=== PATIENT | male | born 1940 | race Caucasian/White ===

== ENCOUNTER 2021-03-03 20:27 | Observation (INO) | payer OTHER, MEDICARE ==
[~2021-03-03] VITALS: Ht 167.6 cm; Wt 95.2 kg
[2021-03-03 20:58] LABS: BASOPHILS ABSOLUTE AUTO 0.08 K/mm3 (0.00-0.23); BASOPHILS PERCENT AUTO 1 % (0-2); EOSINOPHILS PERCENT AUTO 4 % (0-6); Hemoglobin 12.9 g/dL (13.5-17.5); IMMATURE GRAN ABSOLUTE AUTO 0.03 K/mm3 (0.00-0.10); IMMATURE GRAN PERCENT AUTO 0 % (0-1); LYMPHOCYTES ABSOLUTE AUTO 3.23 K/mm3 (0.84-5.20); LYMPHOCYTES PERCENT AUTO 29 % (21-46); MONOCYTES PERCENT AUTO 6 % (4-13); Mean Corpuscular HGB 28.4 pg (26.0-34.0); Mean Corpuscular HGB Conc 33.1 g/dL (31.5-36.5); Mean Corpuscular Volume 86 fL (80-100); NEUTROPHILS ABSOLUTE AUTO 6.54 K/mm3 (1.96-9.15); NEUTROPHILS PERCENT AUTO 60 % (41-73); Platelet Count 233 K/mm3 (150-400); RDW Coefficient Variation 13.3 % (11.7-14.2); Red Blood Cell Count 4.54 M/mm3 (4.30-5.90); White Blood Cell Count 10.98 K/mm3 (4.00-11.30)
[2021-03-03 21:23] LABS: Ethanol (Alcohol), Blood, Med <3 mg/dL
[2021-03-03 21:24] LABS: Alanine Aminotransfer (ALT/SGP 19 U/L (12-78); Albumin, Blood 3.8 g/dL (3.4-5.0); Alk Phos 60 U/L (50-136); Anion Gap 7 mmol/L (6-16); Aspartate Aminotrans (AST/SGOT 13 U/L (12-37); Bilirubin, Total 0.3 mg/dL (0.1-1.0); Blood Urea Nitrogen 28 mg/dL (8-24); Bun/Creatinine Ratio 23.9 (12.0-20.0); CO2, Blood 24 mmol/L (21-32); Calcium, Blood 9.1 mg/dL (8.5-10.1); Chloride, Blood 108 mmol/L (98-108); Creatinine, Blood 1.17 mg/dL (0.60-1.20); Globulin, Blood 3.8 g/dL (2.2-4.0); Glomerular Filtration Rate 60 (60-); Glucose, Blood 97 mg/dL (70-99); Salicylate <1.7 mg/dL (2.8-20.0); Sodium, Blood 139 mmol/L (136-145); Total Protein, Blood 7.6 g/dL (6.4-8.2); Troponin I <0.015 ng/mL (0.000-0.040)
[2021-03-03 21:31] LABS: Acetaminophen, Random <2.0 ug/mL (10.0-30.0)
[2021-03-04 11:12] LABS: Source, Urine Clean Catch
[2021-03-04 11:18] LABS: Appearance, Urine Clear (Clear); Bilirubin, Urine Neg (Neg); Blood, Urine Neg (Neg); Color, Urine Yellow (P-Yellow); Glucose Qualitative, Urine 3+ (Neg); Ketones, Urine Neg (Neg); Leukocyte Esterase, Urine Neg (Neg); Nitrite, Urine Neg (Neg); Protein, Urine 1+ (Neg); Specific Gravity, Urine 1.015 (1.003-1.022); Urobilinogen, Urine NORM (Normal)
[2021-03-04 11:29] LABS: U Amphetamine Screen Not Detected; U Barbituate Screen Not Detected; U Benzodiazapine Screen Not Detected; U Buprenorphine Screen Not Detected; U Cannabinoids Screen Not Detected; U Cocaine Screen Not Detected; U Methadone Screen Not Detected; U Methamphetamine Screen Not Detected; U Opiates Screen Not Detected; U Oxycodone Screen Not Detected; U Phencyclidine Screen Not Detected; U Propoxyphene Screen Not Detected
[2021-03-04] MEDS ORDERED: ACET500 PO (13:37)
[2021-03-04] MEDS ORDERED: ATHLETE'S FOO35.4 GM TOP (13:38)
[2021-03-04] MEDS ORDERED: GLUCOSE4 GM PO (13:39)
[2021-03-04] MEDS ORDERED: NOVOLIN 70100 UNIT/4 SC (13:40)
[2021-03-04] MEDS ORDERED: QUET25 PO ×2 (13:41)
[2021-03-04] MEDS ORDERED: GLUCOPHAGE1000 M1 PO (13:41)
[2021-03-04] MEDS ORDERED: SEROQUEL25 MG PO (13:42)
--- NOTE | 2021-03-04 17:47 | NUR ---
PT ADMITTED FROM ER. DEMENTIA AND PSYCHOSIS. PT WAS PLACED IN RESTRAINTS UPON ARRIVAL HE INSTANTLY POSED A THREAT TO SELF, CONSTANTLY GETTING OUT OF CHAIR, TRYING TO WALK OUT OF OR EVEN JUST AROUND HIS ROOM. PT IS VERY UNSTEADY AND NOT AWARE OF HIS LIMITATIONS. PT SPEACH VERY GARBLED AND OFTEN NON SENSICAL IN NATURE . HE IS ALERT TO SELF, NOT AWARE OF THE YEAR, LOCATION OR SITUATION. PT IS CONSTANTLY MOVING OR FIGITING, UNLOCKING THE WHEELS TO HIS RECLINER, SCOOTING AROUND THE ROOM, TAKING THE TAB ALARM OUT FROM UNDER HIM AND DESTROYING IT. PT HAS PULLED CALL LIGHT FROM WALL, ATTEMPTED TO TIP OVER VISITOR CHAIR, AND STRIPPED DOWN TO HIS BIRTHDAY SUIT. PT IS NOT AGGRESSIVE WITH STAFF AT THIS TIME. THIS NURSE GOT UPDATE FROM HIS DAUGHTER WITH WHOM HE HAS BEEN AGGRESSIVE WITH, SLAPPING HER AND HER 8 YEAR OLD GRANDSON IN THE FACE. PT HAS LIVED ON HIS OWN WITH DAUGHTER AND SON IN LAW NEXT DOOR WHO ARE NO LONGER ABLE TO TAKE CARE OF HIM.
--- NOTE | 2021-03-05 05:38 | NUR ---
SHIFT SUMMARY PATIENT AGITATED AND CONFUSED MOST OF THE NIGHT. REQUIRED TO BE MEDICATED WITH IM ZYPREXA PER EMAR. PATIENT NOW SLEEPING. PATIENT HAD NO COMPLAINTS OF PAIN OR SHORTNESS OF BREATH. BED IN LOWEST POSITION WITH WHEELS LOCKED AND ALARM ON. CALL LIGHT WITHIN REACH. REPORT GIVEN TO ONCOMING RN.
[2021-03-05 06:01] LABS: BASOPHILS ABSOLUTE AUTO 0.07 K/mm3 (0.00-0.23); BASOPHILS PERCENT AUTO 1 % (0-2); EOSINOPHILS ABSOLUTE AUTO 0.45 K/mm3 (0.00-0.68); EOSINOPHILS PERCENT AUTO 5 % (0-6); Hematocrit 40.8 % (37.0-53.0); Hemoglobin 13.6 g/dL (13.5-17.5); IMMATURE GRAN ABSOLUTE AUTO 0.02 K/mm3 (0.00-0.10); IMMATURE GRAN PERCENT AUTO 0 % (0-1); LYMPHOCYTES ABSOLUTE AUTO 3.05 K/mm3 (0.84-5.20); LYMPHOCYTES PERCENT AUTO 31 % (21-46); MONOCYTES PERCENT AUTO 9 % (4-13); Mean Corpuscular HGB Conc 33.3 g/dL (31.5-36.5); Mean Corpuscular Volume 84 fL (80-100); Mean Platelet Volume 10.8 fL (9.1-12.4); NEUTROPHILS ABSOLUTE AUTO 5.42 K/mm3 (1.96-9.15); NEUTROPHILS PERCENT AUTO 55 % (41-73); Platelet Count 262 K/mm3 (150-400); RDW Coefficient Variation 13.2 % (11.7-14.2); RDW Standard Deviation 40.7 fL (35.1-46.3); Red Blood Cell Count 4.85 M/mm3 (4.30-5.90); White Blood Cell Count 9.91 K/mm3 (4.00-11.30)
--- NOTE | 2021-03-05 17:40 | NUR ---
SHIFT SUMMARY PT AXO X1, PLEASANT AND COOPERATIVE WITH CARE. CONVERSATIONAL AND SPEAKS IN FULL SENTENCES THOUGH FLIGHT OF IDEAS THAT ARE NOT CONTEXTUALLY APPROPRIATE. IN LOBO THIS SHIFT R/T BEING IMPULSIVE AND HIGH RISK FOR FALLS. VSS. CBG ACHS, MEDICATED PER EMAR. UP WITH 2 ASSIST WITH FWW AND GB. PT DENIES PAIN, SOB AND NV. UP TO CHAIR FOR MOST OF THE DAY. BED IN LOW POSITION, CALL LIGHT WITHIN REACH AND BED ALARM ON.
--- NOTE | 2021-03-06 04:08 | NUR ---
SUMMARY PT CONTINUES TO TRY AND GET OUT OF BED. PT REMAINS CONFUSED AND IMPULSIVE. PT WAS AWAKE FOR MOST OF SHIFT. PT CURRENTLY SLEEPING AND IN NO DISTRESS. CALL LIGHT IN REACH, BED ALARM ON AND ON CAMERA.
--- NOTE | 2021-03-06 18:31 | NUR ---
PT RESTING IN BED AFTER DINNER AND PM MEDICATION ADMIN. PT REMIANS ALERT BUT CONFUSED AND IN LOBO VEST FOR RISK OF FALLS, AND HARM TO OTHERS FROM AGGITATION. PT AMBULATES FROM BED TO RESTROOM WITH WALKER AND 1 ASSIST. PT COOPERATIVE AND REDIRECTABLE. BED IN LOW POSITION AND STAFF WILL CONTINUE TO MONITOR.
--- NOTE | 2021-03-07 03:54 | NUR ---
PATIENT HAS BEEN COOPERATIVE WITH STAFF THIS SHIFT. AFTER BEDTIME MEDS THE PATIENT WENT TO SLEEP AND HAS BEEN SLEEPING COMFORTABLY T/O THE NIGHT. SCD's PLACED TO BLE. ORIENTED TO SELF. VITALS HAVE BEEN STABLE. PATIENT CONTINUES IN LOBO VEST FOR INCREASED PATIENT SAFETY. PATIENT CONTINUES TO SLEEP IN BED AT THIS TIME. CALL LIGHT WITHIN REACH.
--- NOTE | 2021-03-07 18:28 | NUR ---
PT IN BED, ALERT AND ORIENTED TO SELF. PT CONT. WITH LOBO VEST AND 4 SIDE RAILS FOR SAFETY HE IS A HIGH FALL RISK, CONFUSED, COMBATIVE AT TIMES AND SWINGS HIS ARMS WHEN UPSET. PT HAS BEEN MEDICATION COMPLAINT, ATE ALL OF HIS MEALS AND CALLS OUT WHEN HE NEEDS TO USE THE BESTROOM. 1-2 PERSON ASSIST WITH BRP. PT AGGITATION TREEATED PER EMAR. BED IN LOW POSION AND STAF WILL CONTINUE TO MONITOR.
--- NOTE | 2021-03-08 03:59 | NUR ---
SHIFT SUMMARY A/O TO SELF ONLY. VISUAL AND AUDITORY HALLUCINATIONS NOTED. DENIES PAIN OR SOB. COOPERATIVE WITH CARE T/O SHIFT. ATTEMPTING TO GET OOB, LOBO AND [address] FOR SAFETY. VSS, NO ACUTE CHANGES AT THIS TIME. BED IN LOWEST POSITION WITH CALL LIGHT IN REACH. WILL CONTINUE TO MONITOR AND REPORT TO ONCOMING RN.
[2021-03-08 05:26] LABS: BASOPHILS ABSOLUTE AUTO 0.05 K/mm3 (0.00-0.23); BASOPHILS PERCENT AUTO 0 % (0-2); EOSINOPHILS ABSOLUTE AUTO 0.56 K/mm3 (0.00-0.68); EOSINOPHILS PERCENT AUTO 5 % (0-6); Hematocrit 45.5 % (37.0-53.0); IMMATURE GRAN ABSOLUTE AUTO 0.03 K/mm3 (0.00-0.10); IMMATURE GRAN PERCENT AUTO 0 % (0-1); LYMPHOCYTES ABSOLUTE AUTO 4.15 K/mm3 (0.84-5.20); LYMPHOCYTES PERCENT AUTO 37 % (21-46); MONOCYTES PERCENT AUTO 7 % (4-13); Mean Corpuscular HGB 28.1 pg (26.0-34.0); Mean Corpuscular Volume 85 fL (80-100); Mean Platelet Volume 10.7 fL (9.1-12.4); NEUTROPHILS ABSOLUTE AUTO 5.77 K/mm3 (1.96-9.15); NEUTROPHILS PERCENT AUTO 51 % (41-73); Platelet Count 309 K/mm3 (150-400); RDW Coefficient Variation 13.1 % (11.7-14.2); Red Blood Cell Count 5.33 M/mm3 (4.30-5.90); White Blood Cell Count 11.36 K/mm3 (4.00-11.30)
[2021-03-08 05:49] LABS: Albumin, Blood 4.1 g/dL (3.4-5.0); Albumin/Globulin Ratio 0.9 (0.8-1.8); Bilirubin, Total 0.6 mg/dL (0.1-1.0); Bun/Creatinine Ratio 18.9 (12.0-20.0); Calcium, Blood 9.7 mg/dL (8.5-10.1); Creatinine, Blood 1.22 mg/dL (0.60-1.20); Globulin, Blood 4.5 g/dL (2.2-4.0); Potassium, Blood 3.9 mmol/L (3.5-5.5); Total Protein, Blood 8.6 g/dL (6.4-8.2)
--- NOTE | 2021-03-08 17:42 | NUR ---
SUMMARY- PT ALERT TO SELF AND FAMILY. SITTING UP IN THE CHAIR MOST OF THE DAY. WORKED WITH PT AND OT. 2PERSON ASSIST FFW/GB WALKER TO CHAIR. GOOD STRENGTH, POOR COORDINATION. CONT LOBO VEST FOR PT SAFETY HE DOESN'T KNOW LIMITS AND IMPULSIVE. PT FEEDS SELF. TOLERATING FOOD AND FLUIDS. INCONT ATTENDS CHANGE. BLOOD SUGARS HIGH AROUND 280'S, COVERED WITH LOW LLI. PT ON SEREQUIL, CONT DELUSIONAL BUT CALM, TALKS TO HIMSELF AND THE STAFF, DIRECTABLE.
--- NOTE | 2021-03-09 03:31 | NUR ---
SHIFT SUMMARY A/O TO SELF ONLY. UNABLE TO FOLLOW DIRECTIONS. DIFFICULTY TRANSFERING FROM CHAIR TO BED DESPITE 2 MAX ASSIST FWW AND GB. LOBO AND [address] FOR SAFETY. VSS, NO ACUTE CHANGES AT THIS TIME. BED IN LOWEST POSITION WITH CALL LIGHT IN REACH. WILL CONTINUE TO MONITOR AND REPORT TO ONCOMING RN.
--- NOTE | 2021-03-09 17:01 | NUR ---
SUMMARY- PT UP IN CHAIR MOST OF THE DAY. WALKED ALL THE WAY DOWN THE SHEPARD WITH PHYSICAL THERAPY AND WALKLER. SAT UP IN CHAIR MOST OF THE DAY. TOLERATING FOOD AND FLUIDS. CONT.INCONT ATTENDS. BLOOD SUGARS IN HIGH 200'S, DR PERRY HAS MADE ADJUSTMENTS AND IS MONITORING. AWAITING PLACEMENT.
--- NOTE | 2021-03-09 17:41 | NUR ---
1425- PT SLIPPEP OUT OF END OF CHAIR ONTO FLOOR WITH LOBO IN PLACE. VIDIO MONITOR CALLED RN AND FOUND PT SITTING ON FLOOR LEANING AGAINST CHAIR, CHAIR ALARM HAD NOT GONE OFF AND LOBO WAS HIGH CHEST LEVEL, UNIED LOBO AND 3 PERSON LIFT BACK TO CHAIR. PT SUSTAINED NO INJURY. NOTIFIED MD AND RESISTOR TESTER. NO IRIS FOR WITNESSED SLIP OUT OF CHAIR.
--- NOTE | 2021-03-10 04:42 | NUR ---
SHIFT SUMMARY A/O TO SELF ONLY. MUMBLES INCOHERENTLY. IM ZYPREXA GIVEN ONCE THIS SHIFT FOR AGITATION. LOBO RESTRAINT AND [address] FOR SAFETY. VSS, NO ACUTE CHANGES AT THIS TIME. BED IN LOWEST POSITION WITH CALL LIGHT IN REACH. WILL CONTINUE TO MONITOR AND REPORT TO ONCOMING RN.
--- NOTE | 2021-03-10 18:41 | NUR ---
SHIFT SUMMARY PT HAS BEEN INCREASINGLY BUSY AND RESTLESS IN HIS CHAIR AND ATTEMPTING TO CLIMB OOB WHEN IN BED. ZYPREXA GIVEN WITHNO EFFECT. HAVE HAD HIM IN THE HALLWAY FOR CLOSER MONITERING DUE TO CONSTAND EFFORTS TO STAND UP FROM CHAIR. LOBO VEST IN PLACE AND CHAIR ALARM ON. HAVE WALKED WITH PT IN HALLWAY WITH GAIT BELT AND FWW. HAS BEEN TO BATHROOM. SNACKS OFFERED. BECOMES FIXATED ON SPECIFIC SUBJECTS AND DIFFICULT TO REDIRECT. HAS NOT BEEN AGGRESSIVE OR ANGRY BUT VERY PERSISTANT. VERY CROW.
--- NOTE | 2021-03-11 05:23 | NUR ---
SHIFT SUMMARY A/O TO SELF ONLY. NONSENSICAL SPEECH, DIFFICULTY FOLLOWING COMMANDS. 2 MAX ASSIST WITH FWW AND GB. OLBO RESTRAINT AND [address] FOR SAFETY. VSS, NO ACUTE CHANGES AT THIS TIME. BED IN LOWEST POSITION WITH CALL LIGHT IN REACH. WILL CONTINUE TO MONITOR AND REPORT TO ONCOMING RN.
--- NOTE | 2021-03-11 18:16 | NUR ---
SHIFT SUMMARY PATIENT REMAINED STABLE THROUGHOUT THE DAY. HE IS PLEASANT AND COOPERATIVE, BUT SOMETIMES HARD TO REDIRECT. HE CONTINUES TO PLAY WITH HIS BRIEF AND RESTRAINTS AND WILL SLIDE DOWN IN THE CHAIR WHEN HIS BRIEF IS WET. HE IS ABLE TO WALK TO THE BATHRROM AND THROUGH THE HALLS WITH 1 P ASSIST, FWW, AND GAIT BELT. SITTING UP IN THE CHAIR IN THE HALLWAY IS THE BEST FOR OBSERVATION AND DIVERTING HIS ATTENTION FROM UNTYING HIS RESTRAINTS, ALTHOUGH HIS IS BEING MONITORED ON CAMERA.
--- NOTE | 2021-03-12 03:29 | NUR ---
SHIFT SUMMARY PT AWAKE MOST OF THE NIGHTS AGITATED AND ATTEMPTING TO GET OOB. PT SWINGS LEGS OVER THE SIDE OF THE BED SEVERAL TIMES T/O THE SHIFT. REMOVES HIS ATTENDS AND URINATES ALL OVER HIS LINENS, SEVERAL LINEN CHANGES DONE THIS SHIFT. PT IS A/O TO SELF ONLY, SPEECH NONSENSICAL. PT IS VERY DIFFICULT TO DIRECT. DIVERSIONAL ACTIVITES SUCH TV AND SNACKS PROVIDED TO HELP EASE ANXIETY AND AGIATION WITHOUT MUCH AFFECT. PT MEDICATED FOR AGITATION PER EMAR. LOBO RESTRIANT STILL NEEDED AT THIS TIME PT REMAINS A HIGH FALL RISK. VITALS STABLE. NO ACUTE CHANGES IN ASSESSMENT. BED IN LOWEST POSITION, CALL LIGHT WITHIN REACH.
--- NOTE | 2021-03-12 17:47 | NUR ---
SHIFT SUMMARY- PT IS ALERT, PLESANT AND COOPERATIVE. HE IS EATING AND DRINKING WELL. HE IS CONFUSED. HE IS IN A LOBO DUE TO IMPULSIVITITY AND WANTING TO GET OUT OF BED. HE IS AWAITING PLACMENT. HIS BED IS IN THE LOW POSITION AND CALL LIGHT IS WITHIN REACH.
--- NOTE | 2021-03-12 19:19 | NUR ---
RECEIVED REPORT FROM GIULIA RN. PT IN BED. LOBO IN PLACE, SIDES RAILS X 4 UP. BED ALARM ON. CALL LT IN REACH. RESP E/U ON RA. WILL PROVIDE CARE T/O SHIFT.
--- NOTE | 2021-03-12 21:41 | NUR ---
PT RESTING COMFORTABLY AT THIS TIME. BED ALARM ON. CALL LT IN REACH.
--- NOTE | 2021-03-12 22:58 | NUR ---
REPOSITIONED PT FOR COMFORT. PT CONTINUES TO TALK OUT LOUD, INCOHERENTLY. BED ALARM ON. CALL LT IN REACH.
--- NOTE | 2021-03-13 04:47 | NUR ---
SHIFT SUMMARY: CONTINUES TO BE CONFUSED WITH PERIODS OF AGITATION, THROWING LEGS OVER SIDE RAILS. MUMBLES INCOHERENTLY. LOBO AND SIDE RAILS X 4 UP FOR PT SAFETY. NO COMPLAINTS OF PAIN. ON RA. TAKES PILLS WHOLE IN APPLESAUCE. NO ACUTE CHANGES. WILL PROVIDE CARE UNTIL SHIFT REPORT. CALL LT IN REACH. BED ALARM ON.
--- NOTE | 2021-03-13 18:55 | NUR ---
PT SLEPT T/O THE MORNING, WOKE FOR LUNCH AND HAS BEEN AWAKE THIS AFTERNOON, WILL ASK FOR URINAL AT TIMES, WILL THROW HIS LEGS OVER THE EDGE OF BED AND ATTEMPT TO GET OOB. LOBO VEST REMAINS IN PLACE, BED ALARM ARMED AND CALL GANNON IN REACH.
--- NOTE | 2021-03-13 19:16 | NUR ---
RECEIVED REPORT FROM LAUREANO BAILON. PT LYING IN BED TALKING TO HIS , IS NOT PRESENT. RESP E/U ON RA. LOBO AND SIDE RAILS X [address] BED ALARM ON. CALL LT IN REACH. WILL PROVIDE CARE T/O SHIFT.
--- NOTE | 2021-03-14 04:11 | NUR ---
SHIFT SUMMARY: NO ACUTE CHANGES. CONTINUES TO HAVE PERIODS OF CONFUSION WITH VISUAL HALLUCINATIONS. NO COMPLAINTS OF PAIN OR SOB. LOBO AND SIDE RAILS X 4 FOR SAFETY. CAMERA MONITORING. ON RA. TAKES MEDS WHOLE IN APPLESAUCE. AWAITING PLACEMENT. WILL CONTINUE TO PROVIDE CARE UNTIL SHIFT REPORT.
--- NOTE | 2021-03-14 18:08 | NUR ---
PT HAS BEEN AWAKE AND ACTIVE THIS SHIFT, CONTIUALLY MOVING, WAS UP TO THE CHAIR FOR APPROX 5 HOURS THIS MORNING, HE BECAME INCREASINGLY AGITATED T/O THE AFTERNOON AND AT 1618 10MG IM ZYPREXA GIVEN TO PT WITH GOOD EFFECT. NO ACUTE CHANGES NOTED THIS SHIFT, WILL CONTINUE TO MONITOR AND REPORT TO ONCOMING RN
--- NOTE | 2021-03-14 19:24 | NUR ---
RECEIVED REPORT FROM LAUREANO BAILON. PT LYING IN BED RESTLESS, MUMBLING INCOHERENTLY. ON RA. VEST RESTRAINT. BED ALARM ON. WILL PROVIDE CARE T/O SHIFT. CALL LT IN REACH.
--- NOTE | 2021-03-14 23:58 | NUR ---
PT BECOMING MORE RESTLESS AND AGITATED, THROWING LEGS OVER SIDE RAILS. 10MG ZYPREXA IM GIVEN. WILL CONTINUE TO PROVIDE CARE. BED ALARM ON. CALL LT IN REACH.
--- NOTE | 2021-03-15 04:21 | NUR ---
SHIFT SUMMARY: NO ACUTE CHANGES. RESTLESS AND AGITATED MOST OF THE SHIFT. LOBO AND SIDE RAILS X [address] FOR PT SAFETY. PT WOULD THROW LEGS OVER SIDE RAIL OFF AND ON. NO COMPLAINTS OF PAIN. ON RA. USED URINAL ONCE. ATTENDS IN PLACE. AWAITING PLACEMENT. WILL CONTINUE TO PROVIDE CARE UNTIL SHIFT REPORT.
--- NOTE | 2021-03-15 06:32 | NUR ---
PT RESTING AT THIS TIME AFTER A RESTLESS NIGHT. BED ALARM ON.
--- NOTE | 2021-03-15 16:35 | NUR ---
SHIFT SUMMARY: ASLEEP MOST OF SHIFT. AWAKE ALL HS. REMAINS IMPULSIVE WITH POOR SAFETY AWARENESS AND JUDGEMENT WHEN AWAKE. IN LOBO, WITH SIDE RAILS UP AND ON CAMERA.
--- NOTE | 2021-03-15 23:20 | NUR ---
PT MD ON FLOOR, UPDATE GIVEN. PT REMAINS IN LOBO VEST HE IS UNSTEADY ON FEET AND TRIES TO GET OUT OF BED. CALL LIGHT IN REACH.
--- NOTE | 2021-03-16 03:02 | NUR ---
GAS PUMPING STATION SUPERVISOR SUMMARY HAS BEEN AWAKE AT INTERVALS, WITH ATTEMPTS TO GET OUT OF BED. ASSISTED TO BEDSIDE COMMODE FOR BM EARLIER. OTHER ATTEMPTS INCLUDED SOME APPARENT INCOHERENT VERBALIZATIONS, AND/OR JUST APPARENT MUMBLING. CALL LIGHT IN REACH. LOBO VEST RESTRAINT CONTINUES HE REMAINS A HIGH RISK FOR FALLING HE IS UNSTEADY ON HIS FEET AND DIFFICULT TO REDIRECT. RAILS UP X 4 WELL. CURRENTLY OF THIS WRITING, [place] [facility].
--- NOTE | 2021-03-16 12:52 | NUR ---
Patient was compliant and sitting in his chair without trying or fighting to get up. therfore, His [place] vest was discontinued and monitor techs was notified to watch the patient.
[2021-03-16 14:29] LABS: SARS-Cov-2 (COVID-19) PCR, MMC NEGATIVE (NEGATIVE)
--- NOTE | 2021-03-16 15:34 | NUR ---
Patient picked at right forearm and opended scabed wounds. wounds were cleaned and dressed with bandaid.
--- NOTE | 2021-03-16 16:23 | NUR ---
Shift Summary, The patient was A/OX1 to person throughout the day. He was very confussed and had dilusions that his was admited down the bone and he would try to get out of bed. Patient is very [place]. The patient's restraints were removed this am. Bed alarm was applied and camera on in room for safety. pt is a 1 person assist and was ambulated down the bone by OT. The patient needed constant reminders of how to use the FWW. The patient scratched his scabs off his right arm and the wounds were dressed and bandaids were applied AND THE PATIENT TOLLERATED WELL. The patient has been drinking fluids when reminded and he has urgency to use the bathroom and needs reminders of what he is doing. There were no acute changes this shift.
--- NOTE | 2021-03-17 03:40 | NUR ---
HABILITATION TRAINING SPECIALIST SUMMARY SOON AFTER SHIFT COMMENCE, PT BECAME AGITATED AND WAS CLIMBING OUT OF BED, VERY UNSTEADY ON FEET. ON CAMERA - CAMERA TECH NOTIFIED NURSE SEVERAL TIMES. PT NOT DIRECTABLE, GAITATED. CALL PLACED TO MD AND LOBO VEST AND 4 RAILS UP FOR SAFETY. PT CONTINUED TO DISPLAY AGIATATION AND IM MEDICATION ADMININSTERED. AGIGATION CONTINUED AND PT BEGAN TO RIP LOBO VEST APART. CALL PLACED TO MD AND BILAT WRIST RESTRAINTS ADDED TO ORDERS. HAS BEEN RESTING AT INTERVALS SINCE. CALL LIGHT IN REACH.
--- NOTE | 2021-03-17 16:22 | NUR ---
PT IS ALERT ORIENTED TO SELF ONLY. PT HAS GARBLED SPEECH IS CONTINUOSLY TRYING TO GET UP UNASSISTED AND IS NOT EASILY REDIRECTABLE DUE TO SEVERE DEMENTIA, THE PT IS IN A LOBO VEST AND UP IN THE CHAIR TODAY. PT HAS BEEN PLEASANT OTHERWISE. THE PT DENIES ANY PAIN. THE PT HAS HAD A GOOD APPETITE AND HAS BEEN ENCOURAGED AND IS DRINKING PLENTY OF FLUIDS. THE PT IS HAVING AUDITORY HALUCINATIONS AND IS TALKING OUT LOUD TO IMAGINARY PEOPLE IN HIS ROOM. CHAIR ALARM ON FOR SAFETY. THE PT DOES NOT USE THE CALL LIGHT APPROPRIATLY
--- NOTE | 2021-03-18 04:22 | NUR ---
SHIFT SUMMARY A/O TO SELF ONLY, NONSENSICAL SPEECH. RESTLESS T/O NIGHT, UNABLE TO REDIRECT. IM ZYPREXA GIVEN X1. LOBO IN PLACE FOR SAFETY. VSS, NO ACUTE CHANGES AT THIS TIME. BED IN LOWEST POSITION WITH CALL LIGHT IN REACH. WILL CONTINUE TO MONITOR AND REPORT TO ONCOMING RN.
--- NOTE | 2021-03-18 18:11 | NUR ---
SHIFT SUMMARRY PATIENT IS A/O TO SELF. PATIENT SLEPT THROUGH BREAKFAST BUT WOKE UP FOR LUNCH TO TAKE HIS MEDICATION. PATIENT WAS AGITATED AT FIRST BUT BECAME FOR COOPERATIVE THROUGHOUT THE AFTERNOON. PATIENT HAS BEEN UP ALL AFTERNOON. THERE WERE NO ACUTE CHANGES THIS SHIFT. PATIENT IS UP IN CHAIR WITH TAB/CHAIR ALARM IN PLACE/ CALL LIGHT IN REACH. VITAL SIGNS STABLE, WILL CONTINUE TO MONITOR UNTIL CHANGE OF SHIFT.
--- NOTE | 2021-03-19 04:59 | NUR ---
Rn summary: Pt is oriented only to self, talks constantly, most of it nonsence. Pt has been in vest silvino all shift. Pt tries to get out of bed or chair all the time. Pt has not slept all night. Pt is incontinent of urine, has attends on. Pt is not directable. Did play with activity blanket for 45 minutes. Call light in reach but unable to use apropriately. Pt is on camera.
--- NOTE | 2021-03-19 18:32 | NUR ---
pt has been moving down in bed, attempting to get out of restraints. we did full bed change twice today. bed bath today. he is refusing most of lunch and dinner. did drink milk, refused balance of dinner today. bed in low position, call lite in reach, bed alarm on and posy vest for safety
--- NOTE | 2021-03-19 19:18 | NUR ---
PT INCREASINGLY AGITATED, WIGGLING TO END OF BED AND THROWING LEGS BETWEEN RAILS ATTEMPTING TO GET UP OUT OF BED. NEW RESTRAINT ORDER FOR LOBO VEST AND BILATERAL SOFT LEG RESTRAINTS
--- NOTE | 2021-03-20 04:42 | NUR ---
Rn summary: Patient remains oriented to self only, mumbles nonsence most of the time. Pt has been less restless tonight. Remains in vest silvino and kaz ankle restraints. Pt has actually slept some tonight. Bed alarm is on. Continue close monitoring.
--- NOTE | 2021-03-20 15:39 | NUR ---
PT HAS BEEN SLEEPING MUCH OF DAY. NO C/O PAIN. DID RECEIVE FULL BED BATH AND LINNEN CHANGE. CONTINUES IN RESTRAINTS IS TRYIN G TO BAIL OUT OF BED. CONTINUES TO CURSE, HIT, MUMBLE WHEN HAS INTERACTION WITH HIM. NO NEW CONCERNS NOTED. BED IN LOW POSITION . CALL LITE IN REACH, BED ALARM ONFOR SAFEFY
--- NOTE | 2021-03-21 04:11 | NUR ---
SHIFT SUMMARY AOX0-NONE. UNABLE TO FOLLOW DIRECTIONS OR ANSWER QUESTIONS APPROPRIATELY. NONSENSICAL SPEECH & RESPONSES TO QUESTIONS. VERY TIRED, LETHARGIC. 102.1 TEMP GAVE TYLENOL SUPPOSITORY & TEMP DECREASED TO 98.7, HR TACHY @133 WITH TEMP & DECREASED TO 113 ONCE AFEBRILE. PT UNABLE TO SWALLOW MEDS @BEGINNING OF SHIFT, TOO LETHARGIC. AWAKENED ENOUGH TO SAFETY SWALLOW MEDS LATER. HS CBG @153. HAS OCCASIONAL DRY NON-PRODUCTIVE COUGH, SPO2 >90% ON RA. LOBO & SOFT RESTRAINTS IN PLACE FOR SAFETY, HIGH FALL RISK & CONFUSED/COMBATIVE @TIMES-NOT COMBATIVE THIS SHIFT. AWAITING SAFE PLACEMENT. CALL LIGHT & BED ALARM IN PLACE.
--- NOTE | 2021-03-21 13:01 | NUR ---
PT SLEEPING, NOT EATING. HELD INSULIN AND SEROQUEL
--- NOTE | 2021-03-21 16:49 | NUR ---
PT HAS SLEPT SEVERAL HOURS TODAY. HE DID WAKE FOR LUNCH. ATE GOOD AMOUNT. BACK AWAKE AT THIS TIME. BED IN LOW POSITION, CALL LITE IN REACH, BED ALARM ON FOR SAFETY
--- NOTE | 2021-03-22 02:29 | NUR ---
PATIENT HAS HAD A PRETTY BUSY NIGHT, NOT SLEEPING DESPITE TAKING A TRAZADONE AT BEDTIME. HE REMAINS IN A LOBO VEST FOR INCREASED SAFETY MEASURES HOWEVER COME APPROXIMATELY 0200 THE PATIENT WAS BECOMING MORE AND MORE WORKED UP AND ATTEMPTING HARDER AND HARDER TO GET OUT OF BED. IT APPEARS THOUGH HE MAY HAVE VISUAL HALLUCINATIONS; HE SEEMS TO SEE THINGS THAT AREN'T REALLY PRESENT. THE PATIENT REMAINS IN THE HOSPITAL AT THIS TIME PENDING PLACEMENT, HE IS OTHERWISE MEDICALLY STABLE.
--- NOTE | 2021-03-22 17:11 | NUR ---
SHIFT SUMMARY PATIENT A/O X0. PATIENT RESPONDS IS PASSIVELY COOPERATIVE WITH CARE. PATIENT HAS BEEN INCONTINENT THROUGHOUT THIS SHIFT. PATIENT NAPPED THROUGH MUCH OF THIS AM. PATIENT RESPONDS WITH MUMBLING OR NONSENSICAL RESPONSES. PATIENT LYING IN BED THROUGHOUT THIS SHIFT. NO ACUTE CHANGES THIS SHIFT. PATIENT CURRENTLY LYING IN BED WATCHING TELEVISION.
--- NOTE | 2021-03-23 04:41 | NUR ---
80 year old [facility] PT with diabetes & dementia continues to need vestrestraint to prevent falls from bed. He puts legs over side rails repeatedly & legs over foot of bed. PT is incontinent of bowel & bladder wears attends. Stripped off attends & threw on floor. Remote camera monitoring with multiple calls forhigh fall risk behaviors. PT cusses & raised fist to RN when startled but did not follow through. He was so restless & aggitated i had to use PRN zyprexa 10 mg IM x 1 to stop agitation. Also gave PRN trazodone & tylenol to promote rest.
--- NOTE | 2021-03-23 18:22 | NUR ---
NO ACUTE CHANGES. PT REMAINS VERY CONFUSED. NO OUTBURSTS WITH STAFF. PT STILL NEEDS CLOSE SUPERVISON. RESTED THROUGOUT THE SHIFT.
--- NOTE | 2021-03-24 04:05 | NUR ---
80 year old Boelus with dementia with psychosis continues to need silvino vest to prevent falls from bed. PT unsure if he was ever in the ? Confused with poor memory. Incontinentof bowel & bladder. Able to feed self but is very messy & needs setup & supervision. no safety awareness, bed alarm & remote camera monitor to prevent falls.
[2021-03-24 05:39] LABS: Hematocrit 37.8 % (37.0-53.0); Hemoglobin 12.2 g/dL (13.5-17.5); Mean Corpuscular HGB 27.9 pg (26.0-34.0); Mean Corpuscular HGB Conc 32.3 g/dL (31.5-36.5); Mean Corpuscular Volume 87 fL (80-100); Platelet Count 222 K/mm3 (150-400); RDW Coefficient Variation 12.9 % (11.7-14.2); RDW Standard Deviation 41.1 fL (35.1-46.3); Red Blood Cell Count 4.37 M/mm3 (4.30-5.90); White Blood Cell Count 5.89 K/mm3 (4.00-11.30)
[2021-03-24 05:56] LABS: Albumin, Blood 2.9 g/dL (3.4-5.0); Anion Gap 5 mmol/L (6-16); Blood Urea Nitrogen 23 mg/dL (8-24); Bun/Creatinine Ratio 18.7 (12.0-20.0); CO2, Blood 29 mmol/L (21-32); Chloride, Blood 102 mmol/L (98-108); Creatinine, Blood 1.23 mg/dL (0.60-1.20); Glomerular Filtration Rate 56 (60-); Glucose, Blood 185 mg/dL (70-99); Phosphorus, Blood 3.3 mg/dL (2.5-4.9); Potassium, Blood 3.9 mmol/L (3.5-5.5); Sodium, Blood 136 mmol/L (136-145)
--- NOTE | 2021-03-24 17:32 | NUR ---
SHIFT SUMMARY: PATIENT SLEPT ON AND OFF ALL DAY. PATIENT WAS ABLE TO OBEY COMMANDS NEEDED. A LOBO IS STILL IN PLACE TO AVOID FALLING OUT OF BED. NO NEW CHANGES. BED IN LOWEST POSITION WITH CALL LIGHT IN REACH.
--- NOTE | 2021-03-24 17:51 | NUR ---
PLEASE REFER TO STUDENT NOTE FOR SHIFT SUMMARY.
--- NOTE | 2021-03-25 03:39 | NUR ---
SHIFT SUMMARY A/O TO SELF, IMPULSIVE AND ATTEMPTING TO GET OOB T/O SHIFT. LOBO IN PLACE FOR SAFETY. DENIES PAIN OR SOB. VSS, NO ACUTE CHANGES AT THIS TIME. BED IN LOWEST POSITION WITH CALL LIGHT IN REACH. WILL CONTINUE TO MONITOR AND REPORT TO ONCOMING RN.
--- NOTE | 2021-03-25 14:43 | NUR ---
DIET ORDER CHANG[facility] PATIENT HAVING DIFFICULTY CHEWING.
--- NOTE | 2021-03-25 16:45 | NUR ---
Shift Summary A/Oxself. 2p max c gait belt to transfer. Up in chair for meals, patient was quite drowsy for lunch and had to be fed, otherwise, fed self with all other meals. Impulsive, attempts to climb out of bed, swing legs over rails, slide down in chair, and does not follow commands well. Difficult to redirect. Agitated with staff, however, has not attempted to physically assault staff. Appetite is good. Denies pain. Incontinent. Rips attends off and throws to the ground. Camera on, silvino remains in place. Received T.O. from Dr. Corrigan to continue silvino restraint and 4 side rails for safety. [facility].
--- NOTE | 2021-03-25 18:57 | NUR ---
INSULIN HELD BLOOD GLUCOSE BEFORE DINNER WAS 59. PATIENT AWAKE, ALERT, AND ATTEMPTING TO CLIMB OOB. SNACKS GIVEN AND SUGAR RECHECKED, FOUND TO BE 91. NOTIFIED DR. JACOBSEN, ORDERS TO HOLD 1630 HUMALOG AND FOR NIGHT RN TO HOLD 2100 LANTUS IF HS BLOOD GLUCOSE IS LESS THAN 100. NURSE NOTIFY PLACED.
--- NOTE | 2021-03-26 05:03 | NUR ---
SHIFT SUMMARY A/O TO SELF ONLY. NONSENSICAL SPEECH. DENIES PAIN OR SOB. INCONT, ATTENDS IN PLACE. DIFFICULTY FOLLOWING COMMANDS, LOBO IN PLACE FOR SAFETY. VSS, NO ACUTE CHANGES AT THIS TIME. BED IN LOWEST POSITION WITH CALL LIGHT IN REACH. WILL CONTINUE TO MONITOR AND REPORT TO ONCOMING RN.
--- NOTE | 2021-03-26 18:07 | NUR ---
Shift Summary Patient sleepy after morning dose of seroquel two days in a row and refused lunch today. Humalog held for lunch. Remains impulsive and confused, attempts to climb out of bed. No violent or aggressive behaviors this shift. No acute concerns. Received T.O. from lizbeth Peace to renew restraints. Order updated.
--- NOTE | 2021-03-27 03:38 | NUR ---
SHIFT SUMMARY PATIENT HAD NO ACUTE CHANGES. ALERT TO SELF. NO IV ACCESS. CBG 228. RESTRAINTS PER ORDER. NO SS/X OF PAIN, SOB, AND N/V. TAKES MEDS CRUSHED IN APPLESAUCE. ACTIVITY APRON NEEDED. CALL LIGHT IN REACH. BED IN LOWEST POSITION AND ALARM ACTIVATED. WCTM UNTIL DAY SHIFT NURSE ASSUMES CARE.
--- NOTE | 2021-03-27 10:29 | NUR ---
SEROQUEL AM DOSE CHANGE PER V.O. FROM DR. JACOBSEN, REDUCE SEROQUEL TO 25MG IN AM. EMAR UPDATED.
--- NOTE | 2021-03-27 19:46 | NUR ---
alert and orintated to self, still confused as to where he is, medicated as prescribed and repositioned frequently, bsr shared with returning nurse
--- NOTE | 2021-03-28 03:32 | NUR ---
SHIFT SUMMARY PATIENT HAD NO ACUTE CHANGES OBSERVED. ALERT TO SELF AND BEDREST. RESTRAINTS PER ORDER. TAKES MEDICATION CRUSHED IN APPLESAUCE. VSS/AFEBRILE. DENIES PAIN, SOB, AND N/V. BED IN LOWEST POSITION. WILL CONTINUE TO MONITOR UNTIL DAY SHIFT NURSE ASSUMES CARE.
--- NOTE | 2021-03-28 19:37 | NUR ---
ALERT TO SELF, IN RESTRAINTS FOR OWN SAFETY, CALL LIGHT IN REACH, TENDS TO TRY TO GET OUT OF BED AND WALK HOME, DOES NOT COMPREHEND WHY OR WHERE HE IS, RM AIR AND NO IV, TAKES MEDS IF PRESENT IN THE RIGHT WAY, REPORT SHARED WITH NOC NURSE
--- NOTE | 2021-03-29 03:24 | NUR ---
SHIFT SUMMARY PATIENT HAD NO ACUTE CHANGES OBSERVED, ALERT TO SELF. SITTING IN CHAIR AT SHIFT CHANGE AND FOR FIRST PART OF SHIFT AND BACK TO BED. RESTRAINTS PER ORDER. TAKES MEDICATION CRUSHED IN APPLESAUCE. CBG 286. NO S/SX OF PAIN, SOB, AND N/V. TRAZODONE 50 MG GIVEN FOR INSOMNIA. VSS/AFEBRILE. NO OOB EVENTS. BED IN LOWEST POSITION AND ALARM ACTIVATED. WILL CONTINUE TO MONITOR UNTIL DAY SHIFT NURSE ASSUMES CARE.
--- NOTE | 2021-03-29 17:28 | NUR ---
NO ACUTE CHANGES THIS SHIFT. PT REMAINED IN LOBO VEST T/O DAY FOR INCREASED CONFUSION AND FALL RISK. PT HAS BEEN PLEASANT AND COOPERATIVE BUT VERY IMPULSIVE AND DIFFICULT TO REDIRECT.
--- NOTE | 2021-03-30 06:06 | NUR ---
SHIFT SUMMARY- PT. CONFUSED T/O THE NIGHT, IMPULSIVE. LOBO VEST IN PLACE. NO COMPLAINTS OF PAIN OR DISCOMFORT. SLEPT ON/OFF DURING THE NIGHT, NO APPARENT DISTRESS NOTED. VSS. CALL LIGHT WITHIN REACH, SIDE RAILS UPX3, AND BED ALARM ON FOR SAFETY. WILL CONT TO MONITOR.
--- NOTE | 2021-03-30 18:06 | NUR ---
PT IN LOBO VEST RESTRAINT T/O DAY FOR FALL RISK. PT SLEPT MOST OF MORNING AND THRU LUNCH W/ SOME CONFUSED STAFF IN TO ASSESS. PT UP TO CHAIR SEVERAL TIMES TODAY AND CONT TO ATTEMPT TO GET UP WITHOUT ASSISTANCE. PT IS DIFFICULT TO REDIRECT AND DID BECOME AGGITATED W/ STAFF. PT CONT IS INC AND IN ATTENDS W/ SEVERAL INC VOIDS TODAY. PT BS REMAINED IN THE 200'S TODAY AND S/S WAS INCREASED TO MEDIUM COVERAGE. D/C PLANS ARE STILL WAITING FOR PLACEMENT. NO OTHER CHANGES THIS SHIFT
--- NOTE | 2021-03-31 06:28 | NUR ---
SHIFT SUMMARY PT IS AN 80 Y/O MALE, ADMITTED FOR DEMENTIA C PSYCHOSIS. HE IS A&O X SELF, IRRITABLE WITH STAFF AT TIMES, BEDREST AND TRIES TO CLIMB OUT OF BED WHEN AWAKE. LOBO VEST RESTRAINT IN PLACE. NO S/S OF ACUTE PAIN, NAUSEA OR SOB. VITAL SIGNS STABLE. PT SLEPT WELL THROUGH THE NIGHT AFTER RECEIVING HS MEDS. NO ACUTE CHANGES IN PT CONDITION NOTED DURING THE NIGHT. WILL CONTINUE TO MONITOR AND TREAT PER EMAR UNTIL HAND OFF TO DAY SHIFT RN.
--- NOTE | 2021-03-31 18:44 | NUR ---
PT REMAINED IN LOBO VEST T/O DAY. UP TO CHAIR FOR DINNER. PT HAS BEEN SLEEPING MOST OF DAY, CONFUSED WHEN AWAKE AND DIFFICULT TO DIRECT. BS REMAINED IN 200'S TODAY, S/S INCREASED TO MEDIUM COVERAGE. D/C PLANS ARE LOOKING FOR PLACEMENT. NO OTHER CHANGES THIS SHIFT
--- NOTE | 2021-04-01 07:25 | NUR ---
SHIFT SUMMARY PT REMAINED IN SOFT LOBO VEST, IN NO DISTRESS OR DISCOMFORT. PT WAS PLEASANT WITH STAFF AND ABLE TO TRANSFER FROM RECLINER TO BED WITH ASSISTANCE OF STAFF. NO ACUTE CHANGES. PT SLEPT WELL THIS SHIFT.
--- NOTE | 2021-04-01 19:47 | NUR ---
SHIFT SUMMARY: NO ACUTE CHANGES TO REPORT THIS SHIFT. PT ALERT; ORIENTED TO SELF. PT REMAINS IN LOBO VEST R/T WEAKNESS, CONFUSION, & ATTEMPTS TO GET OOB. PT COOPERATIVE WITH CARE. REPORT GIVEN TO ONCOMING RN.
--- NOTE | 2021-04-02 07:38 | NUR ---
SHIFT SUMMARY NO ACUTE CHANGES. LOBO VEST IN PLACE, PT REMAINED SAFE WITHOUT DISCOMFORT OR APPARENT PAIN.
--- NOTE | 2021-04-02 19:49 | NUR ---
SHIFT SUMMARY: NO ACUTE EVENTS TO REPORT THIS SHIFT. PT ALERT; ORIENTED TO SELF; CONFUSED; COOPERATIVE WITH CARE. NO C/O PAIN THIS SHIFT. PT REMAINS IN LOBO VEST R/T CONFUSION & ATTEMPTS TO GET OOB. AWAITING SAFE DISCHARGE PLAN. REPORT GIVEN TO ONCOMING RN.
--- NOTE | 2021-04-03 05:33 | NUR ---
SHIFT SUMMARY PT IS AN 80 Y/O MALE, ADMITTED FOR DEMENTIA WITH PSYCHOSIS. HE IS A&O X 0, UNABLE TO BE REDIRECTED. CURRENTLY IN A LOBO VEST RESTRAINT FOR PT'S SAFETY. NO S/S OF PAIN OR ACUTE DISTRESS. VITAL SIGNS STABLE. NO ACUTE CHANGES IN PT CONDITION NOTED DURING THE NIGHT. WILL CONTINUE TO MONITOR AND TREAT PER EMAR UNTIL HAND OFF TO DAY SHIFT RN.
--- NOTE | 2021-04-03 17:26 | NUR ---
Shift Summary, The patient has been A/OXO to person place, time and event. The patient changes subjects and does not make since. He is forgetful and does not remeber his limitations. Currently he is continant/incontinant in a breif. He has been in a silvino throughout the shift. He is a 1 prsn assist form the bed to the chair and has moved from the bed to the chair twice today. There have been no acute changes this shift. He is currently sitting in his chair resting.
--- NOTE | 2021-04-04 06:19 | NUR ---
SHIFT SUMMARY PT IS AN 80 Y/O MALE, ADMITTED FOR DEMENTIA WITH PSYCHOSIS. HE IS A&O X 0, VERY CONFUSED, TRIES TO CLIMB OVER THE BED RAILS WHEN AWAKE. HE IS CURRENTLY IN A LOBO VEST RESTRAINT. NO S/S OF PAIN, NAUSEA OR SOB. VITAL SIGNS STABLE. NO ACUTE CHANGES IN PT CONDITION NOTED DURING THE NIGHT. WILL CONTINUE TO MONITOR AND TREAT PER EMAR UNTIL HAND OFF TO DAY SHIFT RN.
--- NOTE | 2021-04-05 04:57 | NUR ---
SHIFT SUMMARY PT IS AN 80 Y/O MALE, ADMITTED FOR DEMENTIA WITH PSYCHOSIS. HE IS A&O X 0, 1-2PA BETWEEN BED AND CHAIR. CURRENTLY IN A LOBO VEST RESTRAINT FOR PT SAFETY. NO S/S OF PAIN, NAUSEA OR SOB. VITAL SIGNS STABLE. NO ACUTE CHANGES IN PT CONDITION NOTED. WILL CONTINUE TO MONITOR AND TREAT PER EMAR UNTIL HAND OFF TO DAY SHIFT RN.
--- NOTE | 2021-04-05 18:13 | NUR ---
PT UP IN CHAIR MOST OF AFTERNOON. CONTINUES TO REQUIRE LOBO VEST AND BED/CHAIR ALARMS FOR SAFETY HAS HE IS A VERY HIGH FALL RISK DUE TO COGNITION DEFICITS. PT DENIES PAIN, SOB, N/V. GOOD APPETITE. NO OTHER CHANGES OR CONCERNS.
[2021-04-07 05:53] LABS: Anion Gap 6 mmol/L (6-16); Blood Urea Nitrogen 18 mg/dL (8-24); Bun/Creatinine Ratio 15.1 (12.0-20.0); CO2, Blood 28 mmol/L (21-32); Calcium, Blood 8.8 mg/dL (8.5-10.1); Chloride, Blood 101 mmol/L (98-108); Creatinine, Blood 1.19 mg/dL (0.60-1.20); Glomerular Filtration Rate 59 (60-); Glucose, Blood 202 mg/dL (70-99); Phosphorus, Blood 3.1 mg/dL (2.5-4.9); Sodium, Blood 135 mmol/L (136-145)
--- NOTE | 2021-04-08 03:28 | NUR ---
SHIFT SUMMARY PT PLEASANTLY CONFUSED. PT HAS NOT SLEPT AT ALL. BUSY ALL THE TIME, PULLING ON ANYTHING HE CAN OR ATTEMPTING TO GET OUT OF BED. LOBO RESTRAINT REMAINS ON. CAMERA ON IN ROOM. PT TRANSFERED TO RECLINER EARLY THIS AM TO SEE IF PT WOULD BE MORE COMFORTABLE. ZYPREXA IM GIVEN X 1. LITTLE TO NO EFFECT. PT SITTING UP IN RECLINER AT THIS TIME. VITAL SIGNS STABLE. AWAITING PLACEMENT. WILL CONTINUE TO MONITOR.
--- NOTE | 2021-04-08 07:01 | NUR ---
PATIENT IS COMPLAINING SOB. CHECKED OXYGEN LEVEL ON 5 LITERS NASAL CANNULA AND IT WAS 84%. INCREASED OXYGEN BACK TO 7 LITERS AND OXYGEN IS STILL IN 84-88%. CHANGED OXYGEN OVER TO HIGH FLOW NASAL CANNULA AND TITRATED UP TO 15 LITERS. SHE IS MAINTAING 92-97% ON THIS SETTING. ATIVAN GIVEN FOR ANXIETY/ANXIOUSNES.
--- NOTE | 2021-04-08 18:50 | NUR ---
SHIFT SUMMARY PATIENT WAS COMPLIANT WITH CARE TODAY. HE WAS IN THE BED AND CHAIR INTERMITTENTLY. REGISTERED TRAVEL NURSE INFORMED THAT HE HAS PLACEMENT LINED UP IN TWO WEEKS. NO OTHER CHANGES IN PATIENT CARE, WILL CONTINUE TO MONITOR
--- NOTE | 2021-04-09 18:20 | NUR ---
PATIENT IS ALERT. HE IS ORIENTED TO FOLLOWING DIRECTIONS AT TIMES. HE IS IN A LOBO VEST RESTRAINT. UP IN THE RECLINER SINCE LUNCH THIS SHIFT. PATIENT SLEPT THROUGH BREAKFAST, WHEN STAFF TRIED TO WAKE HIM, HE BECAME AGRESSIVE. INCONTINENT OF URINE, ATTENDS IN PLACE. SET UP AND SUPERVISE MEALS. WILL CONTINUE TO ONITOR
--- NOTE | 2021-04-10 04:34 | NUR ---
SHIFT SUMMARY ALERT. CONFUSED. COOPERATIVE WITH CARES. FOLLOWS DIRECTS AT TIMES. [place]. NO C/O PAIN/DISCOMFORT. APPEARED TO REST OFF AND ON. INC/CONT; ATTENDS IN PLACE /c ROUTINE CHECKS. REMAINS IN LOBO VEST AND 4 SIDE RAILS FOR SAFETY. NO ACUTE CHANGES NOTED. BED IN LOWEST; ALARM ON. CALL LIGHT AND BELONGINGS WITHIN REACH. CONTINUE WITH CURRENT PLAN OF CARE. REPORT TO ONCOMING RN.
--- NOTE | 2021-04-10 15:37 | NUR ---
MIDSHIFT SUMMARY Patient still having loose stools, otherwise, has been pleasantly confused.
--- NOTE | 2021-04-10 17:14 | NUR ---
PATIENT IS ALERT AND DISORIENTED. HE IS IN A LOBO VEST RESTRAINT. UP IN THE RECLINER AT THIS TIME. INCONTINENT OF URINE, ATTENDS IN PLACE. NO EPISODES OF AGRESSION THIS AFTERNOON. WILL CONTINUE TO MONITOR
--- NOTE | 2021-04-11 04:54 | NUR ---
SHIFT SUMMARY- PT. CONFUSED T/O THE NIGHT AND IMPULSIVE, LOBO VEST IN PLACE. HAD NO COMPLAINTS OF PAIN OR DISCOMFORT DURING THE NIGHT. SLEPT ON/OFF, NO APPARENT DISTRESS NOTED. VSS. CALL LIGHT WITHIN REACH, SIDE RAILS UPX4, AND BED ALARM ON. WILL CONT TO MONITOR.
--- NOTE | 2021-04-11 18:34 | NUR ---
Alert and confused. continue on restrainst. Had three diarrhea episode and Dr CRAIN, no new order for possible C-DIFF given ,will continue to monitor. Insulin coverage was given , no adverse reaction noted. Denies any pain. Continue to monitor.
--- NOTE | 2021-04-12 03:54 | NUR ---
SHIFT SUMMARY ALERT, CONFUSED, FORGETFUL AND IMPULSIVE. COOPERATIVE WITH CARE. 2P MAX ASSIST AT NIGHT /c TRANSFERS. INCONT; ATTENDS IN PLACE /c ROUTINE CHECKS. NO C/O PAIN/DISCOMFORT. REMAINS IN LOBO VEST FOR SAFETY. NO ACUTE CHANGES OVERNIGHT. APPEARED TO REST MINIMALLY. BED IN LOWEST; ALARM ON. CALL LIGHT WITHIN REACH; DOES NOT UTILIZE. CONTINUE WITH CURRENT PLAN OF CARE. REPORT TO ONCOMING RN.
--- NOTE | 2021-04-12 16:33 | NUR ---
SHIFT SUMMARY PT IS AO. PT REMAINS IN POSY VEST WITH SIDERAILS X4 WHILE IN BED. PT IS IMPULSIVE. PT COOPERATIVE WITH MOST CARE. PT DENIES PAIN, N/V, SOB. PT APPETITE IS GOOD. PT IS ONE ASSIST FOR TRANSFERS. PT IS IN BED, CALL LIGHT IN REACH, LOW POSITION.
[2021-04-13 10:14] LABS: Anion Gap 6 mmol/L (6-16); Blood Urea Nitrogen 18 mg/dL (8-24); CO2, Blood 28 mmol/L (21-32); Calcium, Blood 9.3 mg/dL (8.5-10.1); Chloride, Blood 103 mmol/L (98-108); Creatinine, Blood 1.06 mg/dL (0.60-1.20); Glomerular Filtration Rate >60 (60-); Glucose, Blood 201 mg/dL (70-99); Potassium, Blood 4.2 mmol/L (3.5-5.5); Sodium, Blood 137 mmol/L (136-145)
--- NOTE | 2021-04-13 16:20 | NUR ---
SHIFT SUMMARY PT IS AO TO SELF AND COOPERATIVE WITH CARE. PT UP TO CHAIR T/O SHIFT. PT DENIES PAIN, N/V, SOB. PT REMAINS IN POSY VEST. PT APPETITE IS POOR TO MODERATE. PT UP WITH 2P ASSIST. PT IS AWAITING PLACEMENT. PT IS IN CHAIR, ALARM ON, CALL LIGHT IN REACH.
--- NOTE | 2021-04-14 04:04 | NUR ---
SHIFT SUMMARY A/O TO SELF ONLY, PLEASANT AND COOPERATIVE WITH CARE THIS SHIFT. LOBO IN PLACE FOR SAFETY. DENIES PAIN. VSS, NO ACUTE CHANGES AT THIS TIME. BED IN LOWEST POSITION WITH CALL LIGHT IN REACH. WILL CONTINUE TO MONITOR AND REPORT TO ONCOMING RN.
--- NOTE | 2021-04-15 18:45 | NUR ---
NO ACUTE CHANGES. PT IN CHAIR OR BED . RESTRAINTS STILL NEEDED PT IS STILL CONFUSED AND UNSAFE. WILL CONTINUE TO MONITOR .
--- NOTE | 2021-04-16 07:15 | NUR ---
SHIFT SUMMARY ASSUMED CARE OF PT AT 1900. PT IS ALERT BUT ONLY ORIENTED TO HIS SELF. PT DID NOT GO TO BED TILL AROUND 0130 DUE TO AGITATION AND MAKING HIS BED 100 TIMES. PT WAS INCONTINENT T/O THE NIGHT. PT HAD A SMALL BM. WAS A 2P ASSIST TO BSC. CALL LIGHT IN REACH, BED IN LOWEST POSTION.
--- NOTE | 2021-04-16 17:34 | NUR ---
NO ACUTE CHANGES TO PATIENT. HE IS CONFUSED AND REQUIRES RESTRAINTS TO REMAIN SAFE. PT IS UP IN CHAIR. CALL LIGHT WITHIN REACH. WILL CONTINUE TO MONITOR.
--- NOTE | 2021-04-17 05:56 | NUR ---
SHIFT SUMMARRY PATIENT AWAKE MOST OF THE NIGHT. ASSISTED TO BED AT ABUT 2;00AM. 650MG PRN TYLENOL GIVEN PO FOR DISCOMFORT ( FACIAL GRIMACING , CRYING) WITH GOOD EFFCECTS. SAFETY MAITAINED WITH RESTRAINTS.
--- NOTE | 2021-04-17 17:50 | NUR ---
Shift Summary The patient is A/OX1 to person, he has been forgetful and needs constant reminders. He has dilusions and talks to himself in the room. The patient has been in a silvino vest for safety becuase he tries to ambulate without requesting assistence. The patient has been up in his recliner most of the day. Currently he is eating his dinner.
--- NOTE | 2021-04-18 06:03 | NUR ---
SHIFT SUMMARRY PATIENT REMAINS AWAKE MOST OF THE NIGHT WITH NO ACUTE MEDICAL CHANGE. HE REFUSED TO GO TO BED SLEPT COMFORTABLY IN RECLINER FROM ABOUT 4P
--- NOTE | 2021-04-18 17:23 | NUR ---
Shift Summary, The patient is A/OX1 to self. The patient has been verbally confruntational he cursed at the nurses that changed him and stated that he was going to fight them. He has been sleeping most of the day and was up to chair about 1600. He has not eaten breakfast or lunch because he slept through it. The patient i incontinent and has been saturating his breif multiple time today. He is a 2 prsn assist to the chair. He has been in a silvino this shift for his safety because he forgets his limitations and needs constant reminders. The patient is currently sitting in his chair resting.
--- NOTE | 2021-04-19 03:03 | NUR ---
SHIFT SUMMARY A/O TO SELF ONLY. DIFFICULTY FOLLOWING COMMNADS, PLEASANT WITH CARE THIS SHIFT. DENIES PAIN OR SOB. LOBO IN PLACE FOR SAFETY. VSS, NO ACUTE CHANGES AT THIS TIME. BED IN LOWEST POSITION WITH CALL LIGHT IN REACH. WILL CONTINUE TO MONITOR AND REPORT TO ONCOMING RN.
--- NOTE | 2021-04-20 04:22 | NUR ---
SHIFT SUMMARY A/O TO SELF ONLY, PLEASANTLY CONFUSED. 2P ASSIST WITH GB. DENIES PAIN. VSS, NO ACUTE CHANGES AT THIS TIME. BED IN LOWEST POSITION WITH CALL LIGHT IN REACH. WILL CONTINUE TO MONITOR AND REPORT TO ONCOMING RN.
--- NOTE | 2021-04-21 03:34 | NUR ---
SHIFT SUMMARY A/O TO SELF ONLY, PLEASANTLY CONFUSED BUT IMPULSIVE. DIFFICULTY FOLLOWING DIRECTIONS. DENIES PAIN. 2P ASSIST WITH GB FOR TRANSFERS. VSS, NO ACUTE CHANGES AT THIS TIME. BED IN LOWEST POSITION WITH CALL LIGHT IN REACH. WILL CONTINUE TO MONITOR AND REPORT TO ONCOMING RN.
--- NOTE | 2021-04-21 14:30 | NUR ---
Spoke with PCM and he stated he will take the patient out of restraints and he will be a one-on-one supervision.
--- NOTE | 2021-04-21 16:07 | NUR ---
Shift Summary, The patient is A/OX1 to self, He has been cooperative with his care but confused and needs constant reminders. He has been sleeping most of the day. He was up to his chair for breakfast and lunch but requested to move to his bed after lunch. The patient's restraints were removed and he was one-on-one supervision. The patient did get out of bed and walked with 1 prsn assist and FWW down the bone and back. He requested to return to bed. He needed constant redirection and he was confused about where he was going. The patient has trouble ambulating at times but when he feels like walking he uses the FWW without trouble. The patient is currenly lying in bed.
--- NOTE | 2021-04-22 03:54 | NUR ---
SHIFT SUMMARY A/O TO SELF ONLY. CONTINUES TO BE IMPULSIVE WITH DIFFICULTY FOLLOWING DIRECTIONS. LOBO PLACED D/T SAFETY ISSUES DESPITE HAVING A 1:1 SITTER IN THE ROOM. VSS, NO ACUTE CHANGES AT THIS TIME. BED IN LOWEST POSITION, ALARM ON, CALL LIGHT IN REACH. WILL CONTINUE TO MONITOR AND REPORT TO ONCOMING RN.
--- NOTE | 2021-04-22 16:56 | NUR ---
Shift Summary, The patient is A/OX1 to self, he is confused and needs constant reminders. The patient was taken out of restraints this AM and is not being supervised one-on--one. The patient can ambulate well using a FWW. However, he is impulsive and confused and forgets his limitations. The patient has walked around the med floor 4x around the medical floor and multiple times down the back hallway. He has used the bathroom with 1 prsn assist and FWW. Currently the patient is walking down the hallway with ANG.
--- NOTE | 2021-04-23 04:46 | NUR ---
PT SLEEPING AT THIS TIME WITH GUARD BEDSIDE AND NO RESTAINTS BEING USED. PT MAKES NO COMPLAINTS THIS SHIFT BUT NEEDED REDIRECTION. REMAINS ORIENTED TO SELF ONLY AND A HIGH FALL RISK. PT UP WITH A 2 PERSON ASSIST. STAFF WILL CONT TO MONITOR.
--- NOTE | 2021-04-23 16:32 | NUR ---
PT IS ALERT ORIENTED TO SELF ONLY, THE PT IS UP WITH MINIMAL ASSIST TO THE BATHROOM. THE PT SLEPT FOR MOST OF THE THE MORNING REFUSING TO GET UP FOR BREAKFAST. THE PT DID GET UP TO THE CHAIR FOR LUNCH AND WAS ABLE TO WALK TO THE BATHROOM WITH ASITANCE X2 SO FAR TODAY. HOWEVER, THE PT SLEPT IN THE CHAIR AND THEN THIS AFTERNOON WANTED TO GO BACK TO HIS BED FOR A NAP. THE PT APPEARS TO BE BREATHING EASILY ON RA AT THIS TIME, DENIED ANY PAIN THIS SHIFT. PTS BED ALARM IS ON. PT WAS NOT AGGRESSIVE AND DID NOT REQUIRE RESTRAINTS. WILL CONTINUE TO MONITOR AND ASSESS FOR CHANGES
--- NOTE | 2021-04-24 04:07 | NUR ---
PT AWAKE FOR MOST OF SHIFT, TO SLEEP AT 0400. PT REMAINT ORIENTED TO SELF, 1-2 PERSON ASSIST WITH FWW AND A FALL RISK. PT HAS BEEN UP AND DOWN FROM ED TO CHAIR TO RETROOM ALL NIGHT. PLEASANT WITH RIORIENTATION. NO CHANGES IN PHYSICAL STAT. HIRAL CONT TO MONITOR.
--- NOTE | 2021-04-24 17:54 | NUR ---
SHIFT SUMMARY: NO ACUTE EVENTS. NO BEHAVIORAL OUTBURSTS, HAS BEEN PLEASANT ALL SHIFT. SLEPT FROM 0630 TO 1530. HAD A SHOWER AND SHAVE WITH ASSISTANCE. DENIES PAIN. SKIN WITH SCATTERED BRUISING. WENT FOR A SHORT WALK, SITTING IN HALLWAY EATING DINNER.
--- NOTE | 2021-04-25 05:23 | NUR ---
PT PLACED IN RESTRAINTS THIS SHFTFOR AGRESSIVE BEHAVIOR. PT WAS AT RISK FOR SELF HARM,HARM TOOTHERS AND FALLS HE WAS POSTURING AND CURSING AT STAFF STATING "GET THE FUCK OUT OF MY WAY OR PUNCH YOU." SECURITY CAME TOUNIT AND HELPED NURSES AND CHARGE PLACE VEST, BILAT SOFT WRIST AND 4SIDE RAILS. PTIS CURRENTLY RESTING IN BED MAKING NO RESTRAINTS.WILL CONTINUE TO MONITOR FOR CONTINUED RESTAINT NEED, AND SAFETY.
--- NOTE | 2021-04-25 18:29 | NUR ---
SHIFT SUMMARY: NO ACUTE EVENTS. ALERT TO SELF ONLY, REQUIRES NUMEROUS VERBAL CUES TO FOLLOW DIRECTIONS. OUT OF RESTRAINTS SINCE 0800. HAS BEEN COOPERATIVE WITH CARE TODAY. SLEPT THROUGH BREAKFAST, BUT WAS AWAKE FOR LUNCH AND DINNER. SAT IN THE RECLINER FOR A TIME THIS AFTERNOON, WAS GIVEN CRAFTS TO WORK ON (CRAYONS, COLORING SHEETS, NOTEPAD), BUT HE ATE A CRAYON SO THESE WERE REMOVED AND HE WAS GIVEN A SNACK INSTEAD. GOOD PO INTAKE, LIKES ICE WATER. CONTINENT OF URINE DURING THE DAY.
--- NOTE | 2021-04-26 05:47 | NUR ---
PT WAS COOPERATIVE AND PLEASANT ALL SHIFT.NO CURSING, OR AGRESSIVE BEHAVIOR. PT HAS SLEEPING SINCE 299. NO OTHER CHANGES TO NOTE.WILL CONT TO MONITOR.
--- NOTE | 2021-04-26 17:09 | NUR ---
PATIENT IS ALERT AND ORIENTED TO SELF AND FOLLOWING DIRECTIONS. NO AGRESSION THIS SHIFT. PATIENT WAS AWAKE AND UP IN THE RECLINER UPON SHIFT CHANGE AND GOT HIMSELF BACK IN BED AT 0800. THE PATIENT SLEPT THROUGH BREAKFAST BUT WOKE UP FOR LUNCH AND MEDICATIONS. HE TOOK NAP FOLLOWING LUNCH. HE IS UP IN THE RECLINER AT THIS TIME. HE IS AMBULATORY TO THE BATHROOM. BEDALARM AND CHAIR ALARM ARE ON. WILL CONTINUE TO MONITOR
--- NOTE | 2021-04-27 02:06 | NUR ---
@0100- THIS NURSE PRESENTED TO PT. ROOM IN RESPONSE TO SET OFF OF BED ALARM. PT. CONFUSED AND IMPULSIVE, FOUND PT. GETTING UP OOB W/O ASSISTANCE. PT. PROCEEDED TO URINATE ON THE FLOOR WHILE STANDING AT THE SIDE OF THE BED. THIS NURSE ATTEMPTED SEVERAL TIMES TO REDIRECT PT. TO SIT BACK IN THE BED FOR ASSISTANCE WITH ATTENDS CHANGE AND CLEANING. CALLED OUT FOR HELP FROM OTHER RN. PT. NON-DIRECTABLE STARTED TO WALK FORWARD AND SLIPPED ON PUDDLE OF URINE ON THE FLOOR AND FELL ON L SHOULDER AND L HIP. THIS NURSE AND ADDITIONAL NURSING STAFF PLACED GB ON PT. AND ASSISTED BACK INTO BED. COMPLETE BED CHANGE DONE, VSS. UPON ASSESSMENT NOTED SMALL INDENTION ON PT. L SHOULDER, NO OTHER INJURIES NOTED. PT. DENIED PAIN OR DISCOMFORT. HOSPITALIST DR SORTO NOTIFIED, RECEIVED ORDER TO CONT TO MONITOR, PT. PLACED IN LOBO VEST. PT. RESTING QUIETLY IN BED, NO APPARENT DISTRESS NOTED. CALL LIGHT WITHIN REACH, SIDE RAILS UPX3, AND BED ALARM.
--- NOTE | 2021-04-27 05:21 | NUR ---
SHIFT SUMMARY- PT. CONFUSED, IMPULSIVE, AND DIFFICULT TO DIRECT AT TIMES. HAD FALL LAST NIGHT. PT. PLACED IN LOBO VEST. NO COMPLAINTS OF PAIN OR DISCOMFORT DURING THE NIGHT, VSS. PT. SLEEPING QUIETLY IN BED, NO APPARENT DISTRESS NOTED. CALL LIGHT WITHIN REACH, SIDE RAILS UPX3, AND BED ALARM ON. WILL CONT TO MONITOR.
--- NOTE | 2021-04-27 15:43 | NUR ---
PATIENT IS ALERT AND ORIENTED TO SELF ONLY. VERY CONFUSED. HAS BEEN OUT OF LOBO VEST SINCE THIS LATE MORNING. VITALS HAVE BEEN STABLE AND WNL. PATIENT IS MEDICALLY STABLE AND CONTINUES TO WAIT FOR PLACEMENT. DESTINEE CAME AND ASSESSED PATIENT FOR PLACEMENT THIS AFTERNOON; AWAITING DECISION TO TAKE PATIENT OR NOT. CALL LIGHT WITHIN REACH.
--- NOTE | 2021-04-28 05:27 | NUR ---
SHIFT SUMMARY PT IS AN 80 Y/O MALE, ADMITTED FOR DEMENTIA WITH PSYCHOSIS. HE IS A&O X 0, WITH WORD SALAD SPEECH. PT DID NOT SLEEP MUCH THROUGH THE NIGHT, AND WAS UP OFTEN. PT REPORTED MILD L HIP PAIN WITH MOVEMENT, BUT REFUSED ANY PAIN MEDS. NO C/O NAUSEA OR SOB. VITAL SIGNS STABLE. NO OTHER ACUTE CHANGES IN PT CONDITION NOTED DURING THE NIGHT. WILL CONTINUE TO MONITOR AND TREAT PER EMAR UNTIL HAND OFF TO DAY SHIFT RN.
--- NOTE | 2021-04-28 15:04 | NUR ---
PATIENT HAS BEEN TIRED AND SLEEPING THE MAJORITY OF THE DAY HOWEVER I WAS INFORMED BY NOC SHIFT THAT THE PATIENT DID NOT SLEEP AT ALL LAST NIGHT SO HE IS LIKELY JUST MAKING UP FOR LOST SLEEP. ASIDE FROM THAT THERE IS NO ACUTE CHANGES TO NOTE AT THIS TIME.
--- NOTE | 2021-04-29 01:44 | NUR ---
ATTEMPTING TO GET OUT OF BED PT ATTEMPTS TO GET OUT OF BED MULTIPLE TIMES. HARD TO RE-DIRECT. PRN SEROQUEL GIVEN. BED ALARM ON, WILL CONTINUE TO MONITOR.
--- NOTE | 2021-04-29 04:25 | NUR ---
CLINICAL NURSE SUMMARY PT IS CONFUSED AND ORIENTED X0. PT HAS ATTEMPTED TO GET OUT OF BED MULTIPLE TIMES. HOWEVER, PT DOES APPEAR TIRED AND QUICKLY FALLS BACK TO SLEEP AFTER GETTING PT BACK TO BED. HARD TO REDIRECT PATIENT. AMBULATES WITH 1 ASSIST WITH FWW. INCONTIENT/CONTIENT. ATTENDS IN PLACE. VSS, CALL LIGHT WITHIN REACH, BED ALARM ON, WILL CONTINUE TO MONITOR.
--- NOTE | 2021-04-29 18:00 | NUR ---
a+o, call light in reach, no IV, rm air, currently sitting up for dinner, which he ate, will continue to monitor and treat until share report with noc nurse
--- NOTE | 2021-04-30 04:19 | NUR ---
VOCATIONAL REHABILITATION COUNSELOR SUMMARY PT A/O X1. PT WAS UP MOST OF THE NIGHT AND TRIED TO GET OUT OF THE BED MULTIPLE TIMES. HARD TO REDIRECT. PT HAD SCHEDULED SEROQUEL PLUS PRN SEROQUEL X1. PT ABLE TO FALL ASLEEP FOR A LITTLE BIT AROUND 0300, VERY LIGHT SLEEPER. AMBULATES WITH 2 ASSIST TO BED. ROOM AIR. BED ALARM ON, CALL LIGHT WITHIN REACH, WILL CONTINUE TO MONITOR.
--- NOTE | 2021-04-30 16:22 | NUR ---
PT at baseline, responded apprpriatly to questions from staff, able to eat on own, tends to use fingers unless redirected, assisted to and from chair, alarm in chair, call light in reach, rm air no iv, cheerful and verbal today
--- NOTE | 2021-05-01 04:29 | NUR ---
[employer] FITNESS INSTRUCTOR SUMMARY ADMITTED FOR DEMENTIA WITH PSYCHOSIS. PT IS FULL CODE. PLAN FOR PLACEMENT. PT BECAME INCREASINGLY AGITATED THROUGHOUT THE NIGHT AND WAS NOT REDIRECTABLE SO WAS PUT IN A LOBO. PT CONTINUED TO TRY TO GET OUT OF BED, PULLING ON LOBO, SO FOUR BED RAILS WERE PUT UP. PT DID NOT SLEEP AND SPENT THE WHOLE NIGHT MUMBLING AND TALKING TO HIMSELF AND PRESSING THE BUTTONS ON THE BED.
--- NOTE | 2021-05-01 16:02 | NUR ---
SHIFT SUMMARY PATIENT SLEPT ALL SHIFT. PATIENT RESPONDS TO STIMULI. ATTEMPTED MULTIPLE TIMES TO WAKE UP TO TAKE MEDICATIONS AND EAT. PATIENT WOULD NOT OPEN EYES LONG ENOUGH TO ACCOMPLISH ANY TASKS. REPOSITIONED THROUGHOUT SHIFT. PATIENT WOULD MOVE ARMS/LEGS AND GROAN, BUT NOT WAKE UP. PATIENT VERY DROWSY AND LETHARGIC.
--- NOTE | 2021-05-01 20:58 | NUR ---
SITTING IN CHAIR AT BEDSIDE WITH LOBO AND CHAIR ALARM ON. REMAINS HIGH FALL RISK AND UNREDIRECTABLE. CURRENTLY IN DIRECT OBSERVATION WELL. CALL LIGHT IN REACH
--- NOTE | 2021-05-02 03:15 | NUR ---
VARNISHER APPRENTICE SUMMARY VOICED WAS TIRED AT HS AND WANTED TO GO TO BED. ASSISTED FROM CHAIR (WITH LOBO VEST) TO THE BED AND RESECURED VEST AFTER TAKING HS MEDS. THEN, A FEW MINUTES LATER BEGAN TO TRY TO GET OUT OF BED MULTIPLE TIMES. RAILS REMAIN UP X 4 PER MD ORDER. REDIRECTION AND MEDS GIVEN, BUT CONTINUES TO DISPLAY AGITATION. CALL LIGHT IN REACH. CAMERA ON. REST ENCOURAGED
--- NOTE | 2021-05-02 16:03 | NUR ---
SHIFT SUMMARY PATIENT DENIES PAIN, NAUSEA, AND SHORTNESS OF BREATH. PATIENT SLEPT MOST OF SHIFT, WOKE UP AT 1500. PATIENT IS A SBA TO THE BATHROOM WITH A FWW. PATIENT IS IN LOBO RESTRAINTS. PATIENT EATING AND DRINKING WELL WHEN AWAKE. PATIENT HAS BEEN PLEASANT AND COOPERATIVE SINCE WAKING UP.
--- NOTE | 2021-05-03 04:51 | NUR ---
PATIENT HAS BEEN RESTLESS, ANXIOUS, CONFUSED TRHOUGHOUT THE SHIFT. HE MADE SEVERAL ATTEMPTS TO GET OUT OF BED. LOBO VEST IN PLACE. CMS INTACT. PATIENT COMPLIED WITH MEDS. BED ALARM EXIT ON. TURNED AND REPOSITIONED FOR COMFORT. WILL CONTINUE TO MONITOR.
--- NOTE | 2021-05-03 11:13 | NUR ---
resting quietly in bed with eyes closed and silvino on, will continue to monitor and treat, held all medication this am due to lethargy, hoping he will waken enough to swallow safely, will continue to monitor and treat as appropriate
--- NOTE | 2021-05-04 03:06 | NUR ---
RECEIVED PATIENT OOB IN CHAIR. ALERT BUT CONFUSED. REMAINS RESTLESS, ANXIOUS, AND AGITATED AT TIMES. TRANSFERRED BACK TO BED. PATIENT MADE SEVERAL ATTEMPTS TO GET OOB. UNSTEADY GAIT BUT FORGETS LIMITATIONS. VEST RESTRAINTS IN PLACE. 4 SIDE RAILS UP. BED ALARM EXIT ON. PO FLUIDS GIVEN. ADLS PROVIDED. REPOSITIONED FOR COMFORT. CMS INTACT. WILL CONTINUE TO MONITOR.
--- NOTE | 2021-05-04 18:14 | NUR ---
SHIFT SUMMARY PATIENT IS UP IN CHAIR EATING DINNER. PATIENT SLEPT MOST OF THE DAY, THERE WERE MULTIPLE ATTEMPTS TO WAKE THEM. THEY SEEMED AGITATED SHORTLY AFTER WAKING BUT IMPROVED WITH TIME. WILL CONTINUE TO MONITOR THE PATIENT UNTIL SHIFT CHANGE.
--- NOTE | 2021-05-05 03:11 | NUR ---
RECEIVED PATIENT OOB IN CHAIR RESTLESS, ANIXOUS, CONFUSED. PATIENT WAS IN LOBO AND STILL MAKING ATTEMPTS TO GET UP. GAIT IS UNSTEADY. PATIENT IS UNABLE TO FOLLOW COMMANDS AND IS AT HIGH RISK FOR FALLS. COMPLIED WITH MEDS. PATIENT WAS MADE COMFORTABLE IN BED. HE REMAINED RESTLESS BUT LESS AGITATED. SAFETY MEASURES MAINTAINED.
--- NOTE | 2021-05-05 14:51 | NUR ---
AN ATTEMPT WAS MADE TO WAKE THE PATIENT. THE PATIENT CONTINUES TO SLEEP AT THIS TIME. WILL CONTINUE TO TRY AND WAKE THE PATIENT.
--- NOTE | 2021-05-05 16:50 | NUR ---
SHIFT SUMMARY PATIENT SLEPT MOST OF THIS SHIFT. AFTER MANY ATTEMPTS THE PATIENT HAS WOKEN UP AND IS NOW IN THEIR CHAIR HAVING A SNACK. THE PATIENT VOIDED [phone] ML , AFTER ASKING THEM TO TRY. THE PATIENT IS STILL IN A LOBO VEST AT THIS TIME. VITAL SIGNS STABLE AT THIS TIME.
--- NOTE | 2021-05-06 04:18 | NUR ---
RECEIVED PATIENT IN CHAIR. ALERT BUT CONFUSED.LOBO VEST IN PLACE. PATIENT IS RESTLESS THROUGHOUT THIS SHIFT. PATIENT TRIED TO GET OUT OF CHAIR SEVERAL TIMES. PATENT WAS TRANSFERRED TO BED. ADLS PROVIDED. PATIENT WAS COMPLIANT WITH BEDTIME MEDICATIONS. PATIENT NEEDS CONSTANT REDIRECTION.PATIENT REPOSITIONED FOR COMFORT. SAFETY MEASURES IN PLACE.
--- NOTE | 2021-05-06 16:57 | NUR ---
SHIFT SUMMARY NO ACUTE CHANGES, A&O TO SELF ONLY, REMAINED IN LOBO THIS SHIFT c 4 SIDE RAILS DUE TO UNSTEADY GAIT AND IMPULSIVENESS. PT AWAKE ALL NIGHT ACCORDING TO REPORT, PT SLEPT GOOD PORTION OF THIS SHIFT. PT AWOKE AT APPROX 1430 AND HAS BEEN AWAKE SINCE. ADJUSTMENTS MADE TO NIGHT TIME MEDS IN HOPES OF GETTING PT BACK TO REGULAR SLEEPING SCHEDULE. PT DENIES ANY DISTRESS AND APPEARS COMFORTABLE. PT IS CURRENTLY RESTING IN CHAIR, LOBO ON c CHAIR ALARM. CALL LIGHT WITHIN REACH.
--- NOTE | 2021-05-07 04:45 | NUR ---
PT SLEPT THROUGH THE NIGHT WITHOUT DISTRESS. HE MADE FEW ATTEMPTS TO GET OOB. TALKING TO HIMSELF AT TIMES BUT IS LESS AGITATED. HE REMAINED DISORGANIZED AND UNABLE TO FOLLOW DIRECTIONS. RESTING IN BED WITH EYES CLOSED WITH PERIODS OF RESTLESSNESS. BED ALARM EXIT ON.
--- NOTE | 2021-05-07 18:24 | NUR ---
SHIFT SUMMARY SLEEP SCHEDULE IMPROVING, HOWEVER PT IS REFUSING ORAL INTAKE. ENCOURAGING ORAL INTAKE FREQUENTLY AND SUPPLEMENTATION. PT DID DANGLE AT BEDSIDE FOR A SHORT PERIOD OF TIME c STAFF BUT DID NOT COOPERATE c GETTING INTO CHAIR. REMAINS IN LOBO FOR SAFETY, RESTLESS @ TIMES. PT IS CURRENTLY LAYING IN BED c CALL LIGHT WITHIN REACH AND BED ALARM ON. REMOTE MONITORING ON WELL.
--- NOTE | 2021-05-07 22:03 | NUR ---
RECEIVED PT IN BED LETHARGIC WITH PERIODS OF RESTLESSNESS. HS MEDS NOT GIVE DUE TO POTENTIAL RISK FOR ASPIRATION. SIDE RAILS UP PT STILL MOVING AND SLIDING DOWN IN BED. BED ALARM EXIT ON. VEST UNTIED. ADLS GIVEN. RESP UNLABORED.
--- NOTE | 2021-05-08 02:54 | NUR ---
PT HAS BEEN LETHARGIC BUT RESTLESS AT TIMES. SLIDING DOWN THE BED. NO MEDS GIVEN DUE TO ASPIRATION RISK. UNABLE TO FOLLOW COMMANDS. HIGH RISK FOR FALLS. SAFETY AND COMFORT MEASURES MAINTAINED.
--- NOTE | 2021-05-08 18:05 | NUR ---
SHIFT SUMMARY: NO ACUTE EVENTS. PATIENT AROUSABLE TO SPEECH AT TIMES, BUT SLEPT MOST OF THE SHIFT. UNABLE TO EAT OR TAKE PO MEDS D/T SOMNOLENCE. INCONTINENT OF B&B, ATTENDS IN PLACE. VEST RESTRAINT IN PLACE; A FEW TIMES PT WAS AWAKE ENOUGH TO TRY CLIMBING OOB, BUT THIS AUTHOR DID NOT FEEL THAT PT WAS AWAKE ENOUGH TO SAFELY SIT IN CHAIR.
--- NOTE | 2021-05-08 20:23 | NUR ---
RECEIVED PT IN BED STILL LETHARGIC. UNABLE TO FOLLOW COMMANDS. PT STILL DISORGANIZED AND RESTLESS. UNABLE TO DRINK OR EAT. HS MEDS NOT GIVEN DUE TO HIGH RISK FOR ASPIRATION. DR. SAMANO WAS NOTIFIED OF PT'S CONDITION. IV FLUIDS ORDERED WITH AM LAB. PT IS STILL AT HIGH RISK FOR FALLS. ORDER RENEWED FOR RESTRAINTS.
--- NOTE | 2021-05-08 21:44 | NUR ---
PT GHANSHYAMAMA AWAKE AND EXTREMELY AGITATED. HE MADE SEVERAL ATTEMPTS TO GET OOB. HARD TO REDIRECT. HS MEDS GIVEN. SALINE LOCK IN PLACE. COMFORT AND SAFETY MEASURES IN PLACE. PO FLUIDS AND SNACK GIVEN. NO PROBLEM EATING OR SWALLOWING. WILL CONTINUE TO MONITOR.
--- NOTE | 2021-05-09 00:39 | NUR ---
FINGERSTICK BG 304. DR. GUZMAN MADE AWARE. ORDER GIVEN TO D/C IVF AND TO CHECK BLOOD SUGAR IN AM. ACCUCHECK IS ORDERED AC/HS. WILL REPORT TO ONCOMING RN IN AM. PT RESTING IN BED WITHOUT DISTRESS. RESP UNLABORED. FLUID D/C PER ORDER.
--- NOTE | 2021-05-09 04:07 | NUR ---
PT SLEPT THOUGH THE NIGHT WITHOUT DISTRESS. TURNED AND REPOSITIONED FOR COMFORT. MUMBLES TO SELF AT TIMES. CMS INTACT. NO CHANGE IN STATUS NOTED. WILL CONTINUE TO MONITOR.
[2021-05-09 05:09] LABS: Hematocrit 37.9 % (37.0-53.0); Hemoglobin 12.1 g/dL (13.5-17.5); Mean Corpuscular HGB 27.9 pg (26.0-34.0); Mean Corpuscular HGB Conc 31.9 g/dL (31.5-36.5); Mean Corpuscular Volume 87 fL (80-100); Mean Platelet Volume 9.9 fL (9.1-12.4); Platelet Count 327 K/mm3 (150-400); RDW Coefficient Variation 13.9 % (11.7-14.2); RDW Standard Deviation 44.5 fL (35.1-46.3); Red Blood Cell Count 4.34 M/mm3 (4.30-5.90); White Blood Cell Count 9.98 K/mm3 (4.00-11.30)
[2021-05-09 05:27] LABS: Bun/Creatinine Ratio 21.2 (12.0-20.0); Calcium, Blood 9.3 mg/dL (8.5-10.1); Creatinine, Blood 1.37 mg/dL (0.60-1.20)
--- NOTE | 2021-05-09 17:46 | NUR ---
SHIFT SUMMARY PT HAS BEEN DEEPLY ASLEEP ALL DAY WITH NO SCUTE CHANGES. RECIEVED 1000 ML NS AND EATEN 5 BITES OF POTATO THIS PM. INFORMED DR. SHE IS LOWERING HIS SEDATIVE MEDICATIONS IN HOPES OF HIM WAKING AND BEING ALERT ENOUGH TO EAT. WILL CONTINUE TO MONITOR.
--- NOTE | 2021-05-09 19:00 | NUR ---
ASSUMED CARE RECEIVED REPORT FROM LAUREANO SILVA. PT RESTING, IN NAD. NO ACUTE NEEDS ASSESSED AT THIS TIME. CONTINUE TO MONITOR.
--- NOTE | 2021-05-10 01:40 | NUR ---
SPOKE TO DR. GUZMAN REGARDING PT'S INCREASED AGITATION, AND UNSUCCESSFUL ATTEMPTS TO ADMINISTER PT'S PO ATIVAN. ORDERS RECEIVED. CONTINUE TO MONITOR.
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
--- NOTE | 2021-05-10 18:37 | NUR ---
SHIFT SUMMARY PT WAS MORE AWAKE TODAY. WAS ABLE TO EAT LUNCH AND DINNER AND TAKE MORNING MEDS. HE WAS AWAKE FOR EVENING MEDS, BUT JUST HOLDING APPLESAUCE IN HIS MOUTH AND NOT SWALLOWING SO THEY WERE SKIPPED. PT WILL BE PLACED AT [facility] TOMORROW. WILL CONTINUE TO MONITOR.
--- NOTE | 2021-05-10 20:33 | NUR ---
Haley DIOR called for renewal of vest restraint & 4 siderails.
--- NOTE | 2021-05-11 06:04 | NUR ---
80 year old [employer] with dementia & psychosis continues with 4 siderails up & vest restraints to pregent falls & further injury. PT on room air incont of bowel & bladder. PT took onytpites with no real liquid intake. DC planning for [place] per report. PT continues confused. no agression. Did refuse HS meds several times then finally took rx in pudding.
[2021-05-11] MEDS ORDERED: BISA10S PR (11:00)
[2021-05-11] MEDS ORDERED: LORA2 PO ×2 (11:02→13:37)
--- NOTE | 2021-05-11 14:43 | NUR ---
PT DISCHARGED TO [facility] BY [facility] @ [id number]. REPORT GIVEN TO LAUREANO INFANTE
== END 2021-05-11 14:18 | disposition home or self-care (01) ==
LOC: ER 20:27 → ERHOLD 20:28 → MEDS 20:28
PROVIDERS: Emergency Medicine; Family Medicine; Hospitalist; Internal Medicine; ADMIT Family Medicine
DX: F03.91 Unspecified dementia, unspecified severity, with behavioral disturbance (principal); R45.1 Restlessness and agitation; R41.0 Disorientation, unspecified; R47.1 Dysarthria and anarthria; E11.65 Type 2 diabetes mellitus with hyperglycemia; E86.0 Dehydration; N17.9 Acute kidney failure, unspecified; R19.7 Diarrhea, unspecified; M16.12 Unilateral primary osteoarthritis, left hip; Z20.822 Contact with and (suspected) exposure to COVID-19; I49.8 Other specified cardiac arrhythmias; Z88.0 Allergy status to penicillin; Z87.891 Personal history of nicotine dependence; Z79.4 Long term (current) use of insulin
CPT/HCPCS: 36415; 70450; 73502; 80048; 80053; 80069; 82140; 82947; 83036; 84443; 84484; 85025; 85027; 92523; 93005; 93010; 97112; 97116; 97162; 97166; 97530; 97530-CO; 97535; 99285-25; A9270; G0480; J1650; J1815; J7030; J7042; U0004

== ENCOUNTER 2021-05-30 18:23 | Emergency (ER) | payer OTHER ==
[~2021-05-30] VITALS: Ht 172.7 cm; Wt 68.0 kg
[~2021-05-30 18:23] MED LIST: ACET500 PO; ATHLETE'S FOO35.4 GM TOP; BISA10S PR; GLUCOPHAGE1000 M1 PO; GLUCOSE4 GM PO; LORA2 PO; NOVOLIN 70100 UNIT/4 SC; QUET25 PO; SEROQUEL25 MG PO
== END 2021-05-30 20:38 | disposition home or self-care (01) ==
LOC: EDBD 18:23 → ER 18:23
DX: S41.111A Laceration without foreign body of right upper arm, initial encounter (principal); E11.9 Type 2 diabetes mellitus without complications; Z79.899 Other long term (current) drug therapy; Z79.84 Long term (current) use of oral hypoglycemic drugs; Z87.891 Personal history of nicotine dependence; W05.0XXA Fall from non-moving wheelchair, initial encounter
CPT/HCPCS: 99283